=== PATIENT | female | born 2000 | race Caucasian/White ===

== ENCOUNTER 2022-07-31 22:25 | Emergency (ER) | payer BC, MEDICAID ==
[2022-07-31] MEDS ORDERED: Lidocaine 1% 5 ML VIAL INJECT ONE (23:06)
[2022-07-31] MEDS ORDERED: Bacitracin Oint 1 GM U/D Packet TOP ONE (23:06)
== END 2022-08-01 00:30 | disposition home or self-care (01) ==
LOC: JP.ED 22:25
DX: S61.216A Laceration without foreign body of right little finger without damage to nail, initial encounter (principal); W26.8XXA Contact with other sharp object(s), not elsewhere classified, initial encounter
CPT/HCPCS: 12001; 99282